=== PATIENT | female | born 1990 | race American Indian/Alaskan Native ===

== ENCOUNTER 2016-12-20 06:49 | Emergency (ER) | payer SELFPAY ==
[2016-12-20 07:32] VITALS: BP 141/98
--- NOTE | 2016-12-20 10:40 | Emergency Department Report ---
HPI - General Chief Complaint: Allergic Reaction Time Seen by Provider: 12/20/16 10:18 - HPI HPI: Patient complaining of rash itching and swelling to face after doing a facial treatment at home one week ago today. Patient denies difficulty swallowing, difficulty breathing, or any swelling of lips or tongue or throat. Patient also denies eye pain, blurred vision, or change in vision ED Past Medical Hx - Past Medical History Previous Medical History?: No - Surgical History Past Surgical History?: No - Social History Smoking Status: Never Smoker Substance Use Type: None - Medications Home Medications: Home Medications Medication Instructions Recorded Confirmed Last Taken Type Doxycycline [Vibramycin CAP] 100 mg PO Q12HR #20 capsule 12/20/16 Unknown Rx Prednisone [predniSONE 10 mg 10 mg PO .TAPER #1 tab.ds.pk 12/20/16 Unknown Rx (6-Day Pack, 21 Tabs)] hydrOXYzine PAMOATE [Vistaril] 25 mg PO Q6HR PRN #30 capsule 12/20/16 Unknown Rx ED Review of Systems ROS: Stated complaint: FACIAL SWELLING/POSS ALLERGIC REACTION Other details as noted in HPI Constitutional: denies: chills, fever, malaise Eyes: denies: eye pain, eye discharge, vision change ENT: denies: ear pain, throat pain, congestion Respiratory: denies: cough, orthopnea, shortness of breath, SOB with exertion, SOB at rest, stridor, wheezing Cardiovascular: denies: chest pain, palpitations, dyspnea on exertion, orthopnea , edema, syncope, paroxysmal nocturnal dyspnea Endocrine: no symptoms reported Gastrointestinal: denies: abdominal pain, nausea, vomiting, diarrhea, constipation, hematemesis, melena Genitourinary: denies: urgency, dysuria, discharge Musculoskeletal: denies: back pain, joint swelling, arthralgia Skin: rash, pruritus. denies: lesions Neurological: denies: headache, weakness, paresthesias Psychiatric: denies: anxiety, depression Hematological/Lymphatic: denies: easy bleeding, easy bruising Physical Exam - Physical Exam Vital Signs: Vital Signs 12/20/16 07:27 Temperature 98.3 F Pulse Rate 102 H Respiratory 16 Rate Blood Pressure 141/98 O2 Sat by Pulse 99 Oximetry General: Patient's awake alert and oriented, normotensive normal cardiac afebrile, nontoxic, in no distress. Patient's eyes ears nose and throat are clear, no angioedema noted, extraocular movements intact, eyes are PERRLA, bilateral breath sounds clear to auscultation, patient moving all extremities with no peripheral edema noted. Patient's face is erythematous with a maculopapular rash, no lymphangitis or lymphadenopathy noted, lesions are blanching, and nontender, rash is consistent with contact dermatitis. Contact dermatitis the patient has is significant does appear that he could lead to a soft tissue infection of the face due to significant peeling and folliculitis that is noted. ED Course Vital Signs 12/20/16 07:27 Temperature 98.3 F Pulse Rate 102 H Respiratory 16 Rate Blood Pressure 141/98 O2 Sat by Pulse 99 Oximetry Critical care attestation.: If time is entered above; I have spent that time in minutes in the direct care of this critically ill patient, excluding procedure time. ED Disposition Clinical Impression: Contact dermatitis, Folliculitis Disposition: DISCHARGED TO HOME OR SELFCARE Is pt being admited?: No Condition: Stable Instructions: Contact Dermatitis (ED), Folliculitis (ED) Prescriptions: Doxycycline [Vibramycin CAP] 100 mg PO Q12HR #20 capsule hydrOXYzine PAMOATE [Vistaril] 25 mg PO Q6HR PRN #30 capsule PRN Reason: Itching Prednisone [predniSONE 10 mg (6-Day Pack, 21 Tabs)] 10 mg PO .TAPER #1 tab.ds.pk Referrals: PRIMARY CARE, [Primary Care Provider] - 3-5 Days
== END 2016-12-20 11:05 | disposition home or self-care (01) ==
LOC: ED 06:49
DX: L25.9 Unspecified contact dermatitis, unspecified cause (principal); L73.9 Follicular disorder, unspecified
CPT/HCPCS: 99282